=== PATIENT | female | born 1990 | race Caucasian/White ===

== ENCOUNTER 2019-10-29 08:00 | Outpatient (CLI) | payer OTHER | END 2019-10-29 23:59 | disposition home or self-care (01) | LOC: STAR 08:00 | PROVIDERS: ATTEND Student in an Organized Health Care Education/Training Program | DX: Z01.818 Encounter for other preprocedural examination (principal); Z11.59 Encounter for screening for other viral diseases | CPT/HCPCS: 36415; 87635 ==

== ENCOUNTER 2019-11-03 18:31 | Inpatient (IN) | payer OTHER ==
[~2019-11-03] VITALS: Ht 167.6 cm; Wt 75.0 kg
[2019-11-03] MEDS ORDERED: LACTATED RINGERS 1,000 ML IV SCH (18:53)
[2019-11-03] MEDS ORDERED: OXYTOCIN 30U/ 0.9% NaCL 500ML 500 ML IV ONE (18:53)
[2019-11-03] MEDS ORDERED: D5%-LACTATED RINGERS 1,000 ML IV SCH (18:53)
[2019-11-03] MEDS ORDERED: ONDANSETRON 2MG/ML, 2ML IVPush PRN (19:00)
[2019-11-03] MEDS ORDERED: TERBUTALINE 1 MG/ML, 1ML SQ PRN (19:00)
[2019-11-03] MEDS ORDERED: FENTANYL PF 100 MCG/2ML IV PRN (19:00)
[2019-11-03] MEDS ORDERED: TERBUTALINE 1 MG/ML, 1ML IVPush PRN (19:00)
[2019-11-03] MEDS ORDERED: SODIUM CHLORIDE FLUSH 10ML SYR IVF PRN (19:00)
[2019-11-03] MEDS ORDERED: FENTANYL PF 100 MCG/2ML IVPush PRN (19:00)
[2019-11-03] MEDS ORDERED: CALCIUM CARBONATE 500 MG TAB.CHEW PO PRN (19:00)
[2019-11-03] MEDS ORDERED: NEWBORN KIT ONE (19:07)
[2019-11-03] MEDS ORDERED: MISOPROSTOL 200 MCG TABLET ONE (19:07)
[2019-11-03] MEDS ORDERED: LIDOCAINE 1%, 20ML ONE (19:07)
[2019-11-03] MEDS ORDERED: OXYTOCIN 30U/ 0.9% NaCL 500ML 500 ML ONE (19:07)
[2019-11-03 19:16] LABS: BASOPHILS # (AUTO) 0.08 x10^3/uL (0-0.1); BASOPHILS % (AUTO) 1 % (0-1); EOSINOPHILS # (AUTO) 0.05 x10^3/uL (0-0.4); EOSINOPHILS % (AUTO) 1 % (1-7); LYMPHOCYTES % (AUTO) 18 % (22-44); MD NO; MEAN CORPUSCULAR HEMOGLOBIN 31.5 pg (27.0-34.8); MEAN CORPUSCULAR HGB CONC 33.8 g/dL (32.4-35.8); MEAN CORPUSCULAR VOLUME 93.1 fL (80-100); MONOCYTES % (AUTO) 5 % (2-9); NEUTROPHILS # (AUTO) 7.94 x10^3/uL (1.8-6.8); NEUTROPHILS % (AUTO) 76 % (42-75); PLATELET COUNT 232 x10^3/uL (130-400); RED BLOOD COUNT 3.83 x10^6/uL (3.82-5.3); RED CELL DISTRIBUTION WIDTH 14.2 % (9.6-15.2)
[2019-11-03] MEDS ORDERED: FENTANYL PF 100 MCG/2ML ONE (23:27)
[2019-11-04] MEDS ORDERED: FENTANYL/BUPIV./NS/PF 250 ML EPIDCONT ONE (00:49)
[2019-11-04] MEDS ORDERED: BUPIVACAINE 0.25% ONE (00:49)
[2019-11-04] MEDS ORDERED: LACTATED RINGERS 1,000 ML IV SCH (01:13)
[2019-11-04] MEDS ORDERED: FENTANYL/BUPIV./NS/PF 250 ML EPIDCONT SCH (01:13)
[2019-11-04] MEDS ORDERED: EPHEDRINE 50 MG/ML, 1ML IVPush PRN (01:30)
[2019-11-04] MEDS ORDERED: LACTATED RINGERS 1,000 ML IVBOLUS PRN (01:30)
[2019-11-04] MEDS ORDERED: SODIUM CITRATE/CITRIC ACID 30 ML UDC ONE (03:05)
[2019-11-04] MEDS ORDERED: METOCLOPRAMIDE 5 MG/ML, 2ML ONE (03:05)
[2019-11-04] MEDS ORDERED: METOCLOPRAMIDE 5 MG/ML, 2ML IV ONE (03:30)
[2019-11-04] MEDS ORDERED: SODIUM CITRATE/CITRIC ACID 30 ML UDC PO ONE (03:30)
[2019-11-04] MEDS ORDERED: AZITHROMYCIN 500 MG in SODIUM CHLORIDE 0.9% 250 ML IV ONE (03:30)
[2019-11-04] MEDS: LEVETIRACETAM 500 MG TABLET PO SCH ×3 (07:15→16:00)
[2019-11-04] MEDS ORDERED: OXYTOCIN 30U/ 0.9% NaCL 500ML 500 ML ONE (11:51)
[2019-11-04] MEDS: OXYTOCIN 30U/ 0.9% NaCL 500ML 500 ML IV SCH ×2 (12:29→22:29)
[2019-11-04] MEDS ORDERED: SIMETHICONE 80 MG CHEW TAB PO PRN (12:30)
[2019-11-04] MEDS ORDERED: BISACODYL 10 MG SUPP PR PRN (12:30)
[2019-11-04] MEDS ORDERED: MISOPROSTOL 200 MCG TABLET PR PRN (12:30)
[2019-11-04] MEDS ORDERED: OXYcodone IR 5MG TABLET PO PRN (12:30)
[2019-11-04] MEDS ORDERED: ONDANSETRON 2MG/ML, 2ML IV PRN (12:30)
[2019-11-04] MEDS ORDERED: IBUPROFEN 600 MG TABLET ONE (12:49)
[2019-11-04] MEDS: IBUPROFEN 600 MG TABLET PO PRN ×2 (12:51→19:27)
[2019-11-04 17:18] VITALS: BP 129/75
[2019-11-04 18:27] LABS: MEAN CORPUSCULAR HEMOGLOBIN 32.1 pg (27.0-34.8); MEAN CORPUSCULAR HGB CONC 34.5 g/dL (32.4-35.8); MEAN CORPUSCULAR VOLUME 93.3 fL (80-100); MEAN PLATELET VOLUME 8.4 fL (7.4-10.4); PLATELET COUNT 213 x10^3/uL (130-400); RED BLOOD COUNT 3.63 x10^6/uL (3.82-5.3); RED CELL DISTRIBUTION WIDTH 14.3 % (9.6-15.2)
[2019-11-04 19:04] LABS: BASOPHILS # (AUTO) 0.04 x10^3/uL (0-0.1); BASOPHILS % (AUTO) 0 % (0-1); EOSINOPHILS % (AUTO) 0 % (1-7); LYMPHOCYTES # (AUTO) 1.58 x10^3/uL (1-3.4); LYMPHOCYTES % (AUTO) 10 % (22-44); MD SCAN; MONOCYTES # (AUTO) 0.88 x10^3/uL (0.2-0.8); MONOCYTES % (AUTO) 6 % (2-9); NEUTROPHILS % (AUTO) 84 % (42-75)
[2019-11-04] MEDS: DOCUSATE 100 MG CAPSULE PO PRN (19:27)
[2019-11-04 19:30] VITALS: BP 124/77
[2019-11-04] MEDS ORDERED: LEVETIRACETAM 500 MG TABLET PO SCH (21:00)
[2019-11-05 00:10] VITALS: BP 120/65
[2019-11-05] MEDS: ACETAMINOPHEN 325 MG TABLET PO PRN ×2 (01:29→11:54)
[2019-11-05] MEDS: IBUPROFEN 600 MG TABLET PO PRN ×2 (01:29→11:54)
[2019-11-05 04:40] VITALS: BP 111/67
[2019-11-05] MEDS: LEVETIRACETAM 500 MG TABLET PO SCH ×2 (07:00→11:00)
[2019-11-05] MEDS: OXYTOCIN 30U/ 0.9% NaCL 500ML 500 ML IV SCH (08:29)
[2019-11-05] MEDS ORDERED: PRENATAL VIT/IRON/FA 1 EACH TABLET PO SCH (09:00)
[2019-11-05 09:38] VITALS: BP 107/67
[2019-11-05] MEDS: DOCUSATE 100 MG CAPSULE PO PRN (11:54)
[2019-11-05] MEDS ORDERED: IBUP-1222 PO (14:18)
== END 2019-11-05 15:40 | disposition home or self-care (01) | DRG 807 ==
LOC: LDOP 18:31 → LDIP 19:13 → 2NW 11-04 14:45
PROVIDERS: ADMIT Student in an Organized Health Care Education/Training Program; ATTEND Student in an Organized Health Care Education/Training Program
PROC: 10E0XZZ Delivery of Products of Conception, External Approach (ICD-10-PCS; principal; 2019-11-04)
PROC: 0HQ9XZZ Repair Perineum Skin, External Approach (ICD-10-PCS; 2019-11-04)
PROC: 3E0R3BZ Introduction of Anesthetic Agent into Spinal Canal, Percutaneous Approach (ICD-10-PCS; 2019-11-04)
PROC: 00HU33Z Insertion of Infusion Device into Spinal Canal, Percutaneous Approach (ICD-10-PCS; 2019-11-04)
DX: O99.354 Diseases of the nervous system complicating childbirth (principal); Z37.0 Single live birth; O70.9 Perineal laceration during delivery, unspecified; Z3A.39 39 weeks gestation of pregnancy; G40.909 Epilepsy, unspecified, not intractable, without status epilepticus; Q00-Q99 Congenital malformations, deformations and chromosomal abnormalities
CPT/HCPCS: 36415; J7121; 85025; 86592; 86850; 86900; G0378; J3010; J7120